=== PATIENT | female | born 1960 | race Caucasian/White ===

== ENCOUNTER 2018-05-30 06:55 | Day surgery (SDC) | payer OTHER ==
[2018-05-30] MEDS ORDERED: LIDOCAINE 2% (SDV) 5 ML INJ (09:04)
[2018-05-30] MEDS ORDERED: PROPOFOL 40 ML (09:04)
[2018-05-30] MEDS ORDERED: ALBUTEROL 0.083% (NEB) 2.5 MG/3 ML AMP HHN (09:30)
[2018-05-30] MEDS ORDERED: FENTAnyl 50 MCG/ML VIAL IV (09:30)
[2018-05-30] MEDS ORDERED: ONDANSETRON 4 MG INJ IV (09:30)
[2018-05-30] MEDS ORDERED: ACETAMINOPHEN 500 MG TAB PO (09:30)
== END 2018-05-30 12:41 | disposition home or self-care (01) ==
LOC: GIL 06:55
DX: Z12.11 Encounter for screening for malignant neoplasm of colon (principal); K64.1 Second degree hemorrhoids; K57.30 Diverticulosis of large intestine without perforation or abscess without bleeding
CPT/HCPCS: 45378